=== PATIENT | female | born 1975 | race African-American/Black ===

== ENCOUNTER 2023-11-10 19:31 | Observation (INO) | payer OTHER ==
[2023-11-10 20:13] LABS: Basophils % (A) 0 %; Eosinophils # (A) 0.2 k/uL (0-0.7); Eosinophils % (A) 3 %; HCT 34.6 % (34.0-46.0); HGB 10.8 gm/dL (11.4-16.0); Hypochromasia Moderate; Lymphocytes # (A) 2.8 k/uL (1.0-4.8); Lymphocytes % (A) 44 %; MCH 26.9 pg (25.0-35.0); MCHC 31.2 g/dL (31.0-37.0); Mean Platelet Volume 7.4; Monocytes # (A) 0.2 k/uL (0-1.0); Monocytes % (A) 3 %; Neutrophils # (A) 3.1 k/uL (1.3-7.7); Neutrophils % (A) 49 %; Platelet Count 302 k/uL (150-450); RBC 4.02 m/uL (3.80-5.40); RDW 15.3 % (11.5-15.5); WBC 6.4 k/uL (3.8-10.6)
[2023-11-10 20:18] LABS: Partial Thromboplastin Time 28.6 sec (22.0-30.0); Prothrombin Time 11.2 sec (10.0-12.5)
[2023-11-10 20:21] LABS: ALT 19 U/L (4-34); AST 25 U/L (14-36); African American GFR (CKD) >90 (>60 ml/min/1.73 sqM); Albumin 3.8 g/dL (3.5-5.0); Alkaline Phosphatase 67 U/L (38-126); Anion Gap 8 mmol/L; Blood Urea Nitrogen 15 mg/dL (7-17); Calcium 9.5 mg/dL (8.4-10.2); Carbon Dioxide 23 mmol/L (22-30); Chloride 109 mmol/L (98-107); Glucose 112 mg/dL (74-99); Lipase 147 U/L (23-300); Magnesium 1.7 mg/dL (1.6-2.3); Non-African American GFR(CKD) >90 (>60 ml/min/1.73 sqM); Potassium 3.6 mmol/L (3.5-5.1); Sodium 140 mmol/L (137-145); Total Bilirubin 0.2 mg/dL (0.2-1.3); Total Protein 6.9 g/dL (6.3-8.2)
[2023-11-10 20:29] LABS: NT-Pro-B-Type Natriuretic Pept 306 pg/mL
[2023-11-10] MEDS: NITROGLYCERIN SL TABS 0.4 MG TAB SUBLINGUAL STA (21:28)
--- NOTE | 2023-11-10 21:55 | XR ---
EXAMINATION TYPE: XR chest 2V DATE OF EXAM: 11/10/2023 7:57 PM CLINICAL INDICATION:Female, 48 years old with history of Chest Pain; [facility] COMPARISON: None TECHNIQUE: XR chest 2V. Frontal and lateral views of the chest.. FINDINGS: Lines/Tubes/Devices: EKG leads and other extrinsic structures overlie the chest. No indwelling lines are seen. Heart/mediastinum: Heart appears mildly enlarged. Mediastinum appears normal. Pulmonary vascularity: Pulmonary vascular congestion. Increased interstitial markings can be seen wit h edema or pneumonitis. An element of chronic change is possible. Lungs/Pleura: There is no evidence of pleural effusion, focal consolidation, or pneumothorax. Musculoskeletal: No acute osseous abnormality demonstrated in the limits of the exam. Other findings: None. IMPRESSION: Mild cardiomegaly and mild pulmonary vascular congestion.
[2023-11-10] MEDS ORDERED: NALOXONE 0.4 MG/ML 1 ML VIAL IV PRN (22:11)
--- NOTE | 2023-11-10 22:11 | ED ---
Chest Pain HPI - General Chief Complaint: Chest Pain Stated Complaint: Chest pain Source: patient Mode of arrival: EMS Limitations: no limitations - History of Present Illness Initial Comments: 48-year-old female with past medical history of Behcet's disease, lupus, congestive heart failure who presents emergency department reporting chest pain. She was admitted to [facility] on November 02 for cocaine. Today the patient reported that she started having substernal chest pain with radiation into her left arm and jaw. It started earlier this morning but worsened over the course of the day. She notified staff who gave her 4 chewable aspirin. She presents and continues to have 6 out of 10 chest pain. Denies fevers chills or cough. Reports that she has congestive heart failure due to "the back of her heart not getting blood flow". She denies having any stents. Does have a history of lupus but denies history of pericardial effusion. No other alleviating, precipitating or modifying factors - Related Data Home Medications Medication Instructions Recorded Confirmed Acetaminophen Tab [Tylenol] 650 mg PO Q4H PRN 11/10/23 11/10/23 Amoxicillin 500 mg PO BID 11/10/23 11/10/23 Atorvastatin [Lipitor] 10 mg PO DAILY 11/10/23 11/10/23 Chlorpheniramine Maleate 4 mg PO Q4H PRN 11/10/23 11/10/23 [Chlor-Trimeton] Docusate [Colace] 100 mg PO BID PRN 11/10/23 11/10/23 Hydrocortisone Cream 1 applic TOPICAL BID PRN 11/10/23 11/10/23 [Hydrocortisone 1% Cream] Ibuprofen [Motrin Ib] 200 mg PO Q6H PRN 11/10/23 11/10/23 Melatonin 10 mg PO HS 11/10/23 11/10/23 lisinopriL [Zestril] 10 mg PO DAILY 11/10/23 11/10/23 traZODone HCL [Desyrel] 50 - 150 mg PO HS PRN 11/10/23 11/10/23 Allergies Allergy/AdvReac Type Severity Reaction Status Date / Time Fish Containing Products Allergy Anaphylaxis Verified 11/10/23 19:44 [Fish] lidocaine Allergy Anaphylaxis Verified 11/10/23 19:44 Review of Systems ROS Statement: Those systems with pertinent positive or pertinent negative responses have been documented in the HPI. ROS Other: All systems not noted in ROS Statement are negative. Past Medical History Past Medical History: Chest Pain / Angina, Heart Failure, Rheumatoid Arthritis (RA) Additional Past Medical History / Comment(s): Bechets Diease, Lupus History of Any Multi-Drug Resistant Organisms: None Reported Past Surgical History: Section, Hernia Repair Past Psychological History: No Psychological Hx Reported Smoking Status: Never smoker Past Alcohol Use History: None Reported Past Drug Use History: Cocaine, Marijuana General Exam Limitations: no limitations General appearance: alert, in no apparent distress Head exam: Present: atraumatic, normocephalic, normal inspection Eye exam: Present: normal appearance, PERRL, EOMI. Absent: scleral icterus, conjunctival injection, periorbital swelling ENT exam: Present: normal exam, mucous membranes moist Neck exam: Present: normal inspection. Absent: tenderness, meningismus, lymphadenopathy Respiratory exam: Present: normal lung sounds bilaterally. Absent: respiratory distress, wheezes, rales, rhonchi, stridor Cardiovascular Exam: Present: regular rate, normal rhythm, normal heart sounds. Absent: systolic murmur, diastolic murmur, rubs, gallop, clicks GI/Abdominal exam: Present: soft, normal bowel sounds. Absent: distended, tenderness, guarding, rebound, rigid Extremities exam: Present: normal inspection, full ROM, normal capillary refill. Absent: tenderness, pedal edema, joint swelling, calf tenderness Back exam: Present: normal inspection Neurological exam: Present: alert, oriented X3, CN II-XII intact Psychiatric exam: Present: normal affect, normal mood Skin exam: Present: warm, dry, intact, normal color. Absent: rash Course Vital Signs 11/10/23 11/10/23 11/10/23 19:37 19:41 20:44 Temperature 97.4 F L Pulse Rate 62 77 Pulse Rate [ 65 Complaint Analyst ] Respiratory 18 18 Rate Blood Pressure 134/80 123/73 O2 Sat by Pulse 100 97 Oximetry 11/10/23 11/10/23 21:28 22:00 Temperature Pulse Rate 68 58 L Pulse Rate [ Complaint Analyst ] Respiratory 18 18 Rate Blood Pressure 113/73 121/74 O2 Sat by Pulse 98 100 Oximetry Chest Pain MDM - MDM Was pt. sent in by a medical professional or institution (, PA, LAWN MAINTENANCE WORKER, urgent care, hospital, or longterm...) When possible be specific @ -Patient sent in from [facility] Did you speak to anyone other than the patient for history (EMS, parent, family, police, friend...)? What history was obtained from this source @ -Spoke with EMS for history Did you review nursing and triage notes (agree or disagree)? Why? @ -I reviewed and agree with nursing and triage notes Were old charts reviewed (outside hosp., previous admission, EMS record, old EKG, old radiological studies, urgent care reports/EKG's, longterm records)? Report findings @ -No old charts were reviewed Differential Diagnosis (chest pain, altered mental status, abdominal pain women, abdominal pain men, vaginal bleeding, weakness, fever, dyspnea, syncope, headache, dizziness, GI bleed, back pain, seizure, CVA, palpatations, mental health, musculoskeletal)? @ -Differential Chest Pain: Stable Angina, Unstable Angina, STEMI, NSTEMI Aortic Dissection, Pneumothorax, Musculoskeletal, Esophageal Spasm GERD, Cholecystitis, Pancreatitis, Zoster, this is not meant to be an all-inclusive list. EKG interpreted by me (3pts min.). @ -S and demonstrates sinus rhythm with rate of 60. WI interval 171. QRS 106. QTc of 406. No acute ST segment elevation. Biphasic T wave lead V3 X-rays interpreted by me (1pt min.). @ -Yes and demonstrates no acute process CT interpreted by me (1pt min.). @ -None done U/S interpreted by me (1pt. min.). @ -None done What testing was considered but not performed or refused? (CT, X-rays, U/S, labs)? Why? @ -None What meds were considered but not given or refused? Why? @ -None Did you discuss the management of the patient with other professionals (professionals i.e. , PA, LAWN MAINTENANCE WORKER, lab, RT, psych nurse, child protective services social worker, mobile heavy equipment mechanic, teacher, court security officer, correctional case manager)? Give summary @ -Spoke with Dr. Agustin for admission Was smoking cessation discussed for >3mins.? @ -No Was critical care preformed (if so, how long)? @ -No Were there social determinants of health that impacted care today? How? (Homelessness, low income, unemployed, alcoholism, drug addiction, transportation, low edu. Level, literacy, decrease access to med. care, usp, rehab)? @ -Patient is in rehab Was there de-escalation of care discussed even if they declined (Discuss DNR or withdrawal of care, Hospice)? DNR status @ -No What co-morbidities impacted this encounter? (DM, HTN, Smoking, COPD, CAD, Cancer, CVA, ARF, Chemo, Hep., AIDS, mental health diagnosis, sleep apnea, morbid obesity)? @ -None Was patient admitted / discharged? Hospital course, mention meds given and route, prescriptions, significant lab abnormalities, going to OR and other pertinent info. @ -Upon arrival patient seen and evaluated. Thorough history and physical exam was performed. Twelve-lead EKG is obtained. Laboratory studies are conducted. Patient does have reported cardiac history. She is having active chest pain. I feel the patient would benefit from admission with cardiology consultation. Patient was agreeable to this. She was admitted for in stable condition Undiagnosed new problem with uncertain prognosis? @ -No Drug Therapy requiring intensive monitoring for toxicity (Heparin, Nitro, Ins ulin, Cardizem)? @ -No Were any procedures done? @ -No Diagnosis/symptom? @ -Acute chest pain Acute, or Chronic, or Acute on Chronic? @ -Acute Uncomplicated (without systemic symptoms) or Complicated (systemic symptoms)? @ -Complicated Side effects of treatment? @ -No Exacerbation, Progression, or Severe Exacerbation? @ -No Poses a threat to life or bodily function? How? (Chest pain, [place], [place], pneumonia, PE, COPD, DKA, ARF, appy, cholecystitis, CVA, Diverticulitis, Homicidal, Suicidal, threat to staff... and all critical care pts) @ -No Disposition Clinical Impression: Chest pain Disposition: ADMITTED IP TO THIS HOSP Condition: Stable Is patient prescribed a controlled substance at d/c from ED?: No Time of Disposition: 22:11 Decision to Admit Reason: Admit from EC Decision Date: 11/10/23 Decision Time: 22:11
[2023-11-10] MEDS: KETOROLAC 15 MG/ML 1 ML VIAL IVP STA (23:03)
[2023-11-11] MEDS ORDERED: DOCUSATE 100 MG CAP PO PRN
[2023-11-11] MEDS ORDERED: NITROGLYCERIN SL TABS 0.4 MG TAB SUBLINGUAL PRN (00:02)
--- NOTE | 2023-11-11 00:18 | P.HPIM ---
History of Present Illness H&P Date: 11/10/23 Chief Complaint: chest pain 48-year-old female with arthritis and lupus Patient was at [facility] for the past 1 week due to polysubstance abuse today she was having episodes of almost blacking out she was standing in line waiting for food when suddenly she felt sudden onset chest pressure 10 out of 10 in severity retrosternal associated with dizziness profuse sweating shortness of breath palpitations and lightheadedness she feels like almost blacking out but she did not staff helped her out gave her 4 tablets of baby aspirin and nitroglycerin sublingual without improvement in chest pain they then called 911 and transferred her to our facility for evaluation at time of my evaluation right now she still complaining of retrosternal chest pain requesting some pain medications claiming that nitro sublingual is not working. At this time denies any shortness of breath nausea vomiting dizziness or lightheadedness She denies any cardiac history she does report some vague congestive heart failure but denies any coronary artery disease or stenting in the past she claims that she had remote cardiac workup in the past nothing recent She admits to tobacco smoking and illicit drugs occasional marijuana and cocaine last use was about a week ago for cocaine denies any heavy alcohol she denies any fever, chills, cough, sore throat, abd pain , changes in urinary or bowel habits. review of systems Pertinent positives as noted in HPI. All other systems were reviewed and are negative on exam Constitutional: No acute distress, conversant, pleasant Eyes: Anicteric sclerae, moist conjunctiva, Pupils equal round reactive to light Lungs: Clear to auscultation Clear to percussion Normal respiratory effort, no accessory muscle use Cardiovascular: Heart regular in rate and rhythm, No murmurs, gallops, or rubs +1 bilateral peripheral leg edema Abdominal: Soft Nontender, no guarding, rebound or rigidity Abdomen moving with respiration Normoactive bowel sounds Extremities: Deformity of bilateral hands due to arthritis Pedal pulses intact and symmetrical Radial pulses intact and symmetrical No calf tenderness Psychiatric: Alert and oriented to person, place and time Neuro Muscles Strength 5/5 in all 4 extremities Sensation to light touch grossly present throughout Cranial nerves II-XII grossly intact Past Medical History Past Medical History: Chest Pain / Angina, Heart Failure, Rheumatoid Arthritis (RA) Additional Past Medical History / Comment(s): Bechets Disease, Lupus History of Any Multi-Drug Resistant Organisms: None Reported Past Surgical History: Section, Hernia Repair Past Anesthesia/Blood Transfusion Reactions: No Reported Reaction Past Psychological History: No Psychological Hx Reported Smoking Status: Current every day smoker Past Alcohol Use History: None Reported Past Drug Use History: Cocaine, Marijuana Medications and Allergies Home Medications Medication Instructions Recorded Confirmed Type Acetaminophen Tab [Tylenol] 650 mg PO Q4H PRN 11/10/23 11/10/23 History Amoxicillin 500 mg PO BID 11/10/23 11/10/23 History Atorvastatin [Lipitor] 10 mg PO DAILY 11/10/23 11/10/23 History Chlorpheniramine Maleate 4 mg PO Q4H PRN 11/10/23 11/10/23 History [Chlor-Trimeton] Docusate [Colace] 100 mg PO BID PRN 11/10/23 11/10/23 History Hydrocortisone Cream 1 applic TOPICAL BID PRN 11/10/23 11/10/23 History [Hydrocortisone 1% Cream] Ibuprofen [Motrin Ib] 200 mg PO Q6H PRN 11/10/23 11/10/23 History Melatonin 10 mg PO HS 11/10/23 11/10/23 History lisinopriL [Zestril] 10 mg PO DAILY 11/10/23 11/10/23 History traZODone HCL [Desyrel] 50 - 150 mg PO HS PRN 11/10/23 11/10/23 History Allergies Allergy/AdvReac Type Severity Reaction Status Date / Time Fish Containing Products Allergy Anaphylaxis Verified 11/10/23 19:44 [Fish] lidocaine Allergy Anaphylaxis Verified 11/10/23 19:44 Physical Exam Vitals: Vital Signs Temp Pulse Pulse Resp BP Pulse Ox 11/10/23 22:00 58 L 18 121/74 100 11/10/23 21:28 68 18 113/73 98 11/10/23 20:44 77 18 123/73 97 11/10/23 19:41 65 11/10/23 19:37 97.4 F L 62 18 134/80 100 Intake and Output 11/10/23 11/10/23 11/11/23 14:59 22:59 06:59 Other: Weight 70.76 kg Results CBC & Chem 7: 11/10/23 19:45 11/10/23 19:45 Labs: Abnormal Lab Results - Last 24 Hours (Table) 11/10/23 11/10/23 Range/Units 19:45 19:45 Hgb 10.8 L (11.4-16.0) gm/dL Chloride 109 H (98-107) mmol/L Glucose 112 H (74-99) mg/dL Thrombosis Risk Factor Assmnt - Choose All That Apply Each Factor Represents 1 point: Age 41-60 years Thrombosis Risk Factor Assessment Total Risk Factor Score: 1 Thrombosis Risk Factor Assessment Level: Low Risk Assessment and Plan Assessment: 48-year-old female with lupus, arthritis coming in for sudden onset chest pain while she was at [facility] for the past week for polysubstance abuse last use of cocaine was about a week ago I discussed case with ED doctor and accepted the admission for atypical chest pain rule out acute coronary syndrome with a nticipated length of stay less than 2 midnights Atypical chest pain rule out ACS Chest x-ray showing mild pulmonary vascular congestion EKG reported to me to be unremarkable for any acute ST changes I was unable to locate that EKG for review Troponin negative continue to trend Continue with aspirin and Lipitor Cardiology consult Cardiac monitoring Continue to monitor vital signs Morphine IV push 2 mg as needed every 4 hours for pain Check lipid panel in the morning Continue with nitroglycerin sublingual as needed Anemia Hemoglobin 10.8 unknown baseline MCV 86 unremarkable Patient denies any heavy bleeding Continue to monitor hemoglobin Renal function unremarkable sodium 140 potassium 3.6 BUN 15 creatinine 0.59 Hypertension Controlled Continue lisinopril 10 mg p.o. daily Full code DVT prophylaxis Lovenox 40 mg subcu daily
[2023-11-11] MEDS: MELATONIN 5 MG TABLET PO SCH (02:00)
[2023-11-11] MEDS: ACETAMINOPHEN TAB 325 MG TAB PO PRN (03:40)
[2023-11-11 04:41] LABS: Basophils % (A) 0 %; Eosinophils # (A) 0.1 k/uL (0-0.7); Eosinophils % (A) 3 %; HCT 34.5 % (34.0-46.0); HGB 10.8 gm/dL (11.4-16.0); Hypochromasia Moderate; Lymphocytes # (A) 2.2 k/uL (1.0-4.8); Lymphocytes % (A) 51 %; MCH 26.8 pg (25.0-35.0); MCHC 31.3 g/dL (31.0-37.0); MCV 85.7 fL (80.0-100.0); Mean Platelet Volume 7.5; Monocytes # (A) 0.1 k/uL (0-1.0); Monocytes % (A) 3 %; Neutrophils # (A) 1.7 k/uL (1.3-7.7); Neutrophils % (A) 40 %; Platelet Count 267 k/uL (150-450); RBC 4.02 m/uL (3.80-5.40); RDW 15.4 % (11.5-15.5); WBC 4.3 k/uL (3.8-10.6)
[2023-11-11] MEDS: PANTOPRAZOLE 40 MG TABLET PO SCH (06:46)
[2023-11-11] MEDS: ENOXAPARIN 40 MG/0.4 ML SYRINGE SQ SCH (08:56)
[2023-11-11] MEDS: MAGNESIUM OXIDE 400 MG TAB PO STA (08:56)
[2023-11-11] MEDS: ATORVASTATIN 10 MG TAB PO SCH (08:56)
[2023-11-11] MEDS: ASPIRIN 81 MG PO SCH (08:56)
[2023-11-11] MEDS: lisinopriL 10 MG TAB PO SCH (08:56)
--- NOTE | 2023-11-11 09:52 | P.CRDCN ---
History of Present Illness Consult date: 11/11/23 History of present illness: HISTORY OF PRESENTING ILLNESS 48-year-old female with arthritis and lupus was being placed in [facility] facility for polysubstance abuse. She presented to the hospital because of concerns of blacking out while standing and waiting in line for food. Patient has been also complaining 10/10 left-sided chest pain under her breast which is somewhat reproducible on palpation. She denies any relief of her chest pain with sublingual nitroglycerin and Toradol. Her ECG shows sinus bradycardia Her telemetry shows sinus bradycardia with heart rate in 40s while she is resting. Troponins are negative, NT proBNP is normal, hemoglobin is 10.8 REVIEW OF SYSTEMS 14 point review of system is negative except what is mentioned above in HPI. PHYSICAL EXAMINATION Vital signs reviewed. Head: Normocephalic. Eyes: Sclerae nonicteric. Neck: Brisk carotid upstroke, no jugular venous distention. Lungs: Clear to auscultation. Heart: Regular rate and rhythm, S1-S2, no S3, no murmur or rub. Mild tenderness under left breast Abdomen: Soft nontender, positive bowel sounds. Extremities: No edema, intact distal pulses. Neuro: Alert, oritented, no focal deficits. Detailed neuro exam was not performed. ASSESSMENT Sinus bradycardia, physiological Essential hypertension, controlled Polysubstance abuse Mild dehydration Anemia Arthritis lupus PLAN Ambulate patient to see what is her heart rate trends like. If patient's heart rate goes up with ambulation, no further cardiac intervention needed for sinus bradycardia which is most likely physiological. Encourage p.o. intake She is on aspirin, atorvastatin 10, lisinopril 10 mg at home. Will discontinue lisinopril because of her low resting blood pressure Consider lidocaine patch for chest pain and see if it makes any difference Consider obtaining an echocardiogram to make sure there is no cardiogenic etiology of her symptoms. If echocardiogram is normal, patient is cleared from cardiovascular standpoint. Beka Causey MD, FACC, RPVI Thank you for allowing [facility] to participate in this patient's care. Feel free to reach out in case of any followup questions. Past Medical History Past Medical History: Chest Pain / Angina, Heart Failure, Rheumatoid Arthritis (RA) Additional Past Medical History / Comment(s): Bechets Disease, Lupus History of Any Multi-Drug Resistant Organisms: None Reported Past Surgical History: Section, Hernia Repair Past Anesthesia/Blood Transfusion Reactions: No Reported Reaction Past Psychological History: No Psychological Hx Reported Smoking Status: Current every day smoker Past Alcohol Use History: None Reported Past Drug Use History: Cocaine, Marijuana Medications and Allergies Home Medications Medication Instructions Recorded Confirmed Type Acetaminophen Tab [Tylenol] 650 mg PO Q4H PRN 11/10/23 11/10/23 History Amoxicillin 500 mg PO BID 11/10/23 11/10/23 History Atorvastatin [Lipitor] 10 mg PO DAILY 11/10/23 11/10/23 History Chlorpheniramine Maleate 4 mg PO Q4H PRN 11/10/23 11/10/23 History [Chlor-Trimeton] Docusate [Colace] 100 mg PO BID PRN 11/10/23 11/10/23 History Hydrocortisone Cream 1 applic TOPICAL BID PRN 11/10/23 11/10/23 History [Hydrocortisone 1% Cream] Ibuprofen [Motrin Ib] 200 mg PO Q6H PRN 11/10/23 11/10/23 History Melatonin 10 mg PO HS 11/10/23 11/10/23 History lisinopriL [Zestril] 10 mg PO DAILY 11/10/23 11/10/23 History traZODone HCL [Desyrel] 50 - 150 mg PO HS PRN 11/10/23 11/10/23 History Allergies Allergy/AdvReac Type Severity Reaction Status Date / Time Fish Containing Products Allergy Anaphylaxis Verified 11/10/23 19:44 [Fish] lidocaine Allergy Anaphylaxis Verified 11/10/23 19:44 Physical Exam Vitals: Vital Signs Temp Pulse Pulse Resp BP BP Pulse Ox 11/11/23 00:44 98.3 F 67 16 100/57 98 11/10/23 23:48 98.7 F 59 L 16 115/74 99 11/10/23 22:00 58 L 18 121/74 100 11/10/23 21:28 68 18 113/73 98 11/10/23 20:44 77 18 123/73 97 11/10/23 19:41 65 11/10/23 19:37 97.4 F L 62 18 134/80 100 Intake and Output 11/10/23 11/11/23 11/11/23 22:59 06:59 14:59 Intake Total 120 Balance 120 Intake: Oral 120 Other: Voiding Method Toilet # Voids 1 Weight 70.76 kg Results 11/11/23 03:22 11/10/23 19:45 Cardiac Enzymes 11/10/23 11/10/23 11/11/23 Range/Units 19:45 19:45 00:17 AST 25 (14-36) U/L Troponin I <0.012 <0.012 (0.000-0.034) ng/mL 11/11/23 Range/Units 03:22 AST (14-36) U/L Troponin I <0.012 (0.000-0.034) ng/mL Coagulation 11/10/23 Range/Units 19:45 PT 11.2 (10.0-12.5) sec APTT 28.6 (22.0-30.0) sec CBC 11/10/23 11/11/23 Range/Units 19:45 03:22 WBC 6.4 4.3 (3.8-10.6) k/uL RBC 4.02 4.02 (3.80-5.40) m/uL Hgb 10.8 L 10.8 L (11.4-16.0) gm/dL Hct 34.6 34.5 (34.0-46.0) % Plt Count 302 267 (150-450) k/uL Comprehensive Metabolic Panel 11/10/23 Range/Units 19:45 Sodium 140 (137-145) mmol/L Potassium 3.6 (3.5-5.1) mmol/L Chloride 109 H (98-107) mmol/L Carbon Dioxide 23 (22-30) mmol/L BUN 15 (7-17) mg/dL Creatinine 0.59 (0.52-1.04) mg/dL Glucose 112 H (74-99) mg/dL Calcium 9.5 (8.4-10.2) mg/dL AST 25 (14-36) U/L ALT 19 (4-34) U/L Alkaline Phosphatase 67 (38-126) U/L Total Protein 6.9 (6.3-8.2) g/dL Albumin 3.8 (3.5-5.0) g/dL Current Medications Generic Name Dose Route Start Last Admin Trade Name Freq PRN Reason Stop Dose Admin Acetaminophen 650 mg 11/11/23 00:00 11/11/23 03:40 Acetaminophen Tab 325 Mg Tab PO 650 mg Q4H PRN Administration Fever and/ or Pain Aspirin 81 mg 11/11/23 09:00 11/11/23 08:56 Aspirin 81 Mg PO 81 mg DAILY BERTRAM Administration Atorvastatin Calcium 10 mg 11/11/23 09:00 11/11/23 08:56 Atorvastatin 10 Mg Tab PO 10 mg DAILY BERTRAM Administration Docusate Sodium 100 mg 11/11/23 00:00 Docusate 100 Mg Cap PO BID PRN Constipation Enoxaparin Sodium 40 mg 11/11/23 09:00 11/11/23 08:56 Enoxaparin 40 Mg/0.4 Ml Syringe SQ 40 mg DAILY BERTRAM Administration Melatonin 10 mg 11/11/23 00:15 11/11/23 02:00 Melatonin 5 Mg Tablet PO Not Given HS BERTRAM Morphine Sulfate 2 mg 11/11/23 00:01 Morphine Sulfate 2 Mg/Ml Syringe IVP Q4HR PRN Pain/Discomfort Naloxone HCl 0.2 mg 11/10/23 22:11 Naloxone 0.4 Mg/Ml 1 Ml Vial IV Q2M PRN Opioid Reversal Nitroglycerin 0.4 mg 11/11/23 00:02 Nitroglycerin Sl Tabs 0.4 Mg Tab SUBLINGUAL Q5M PRN Chest Pain Pantoprazole Sodium 40 mg 11/11/23 07:30 11/11/23 06:46 Pantoprazole 40 Mg Tablet PO 40 mg [id number] BERTRAM Administration Intake and Output 11/10/23 11/11/23 11/11/23 22:59 06:59 14:59 Intake Total 120 Balance 120 Intake: Oral 120 Other: Voiding Method Toilet # Voids 1 Weight 70.76 kg 11/11/23 03:22 11/10/23 19:45
[2023-11-11 10:09] LABS: Chol/HDL Ratio 2.86 Ratio; LDL Cholesterol,Calculated 70.7 mg/dL (0.0-131.0)
[2023-11-11 10:10] LABS: Blood Urea Nitrogen 14.3 mg/dL (9.0-27.0); Calcium 8.8 mg/dL (8.7-10.3); Carbon Dioxide 22.5 mmol/L (21.6-31.8); Chloride 110 mmol/L (96-109); Glucose 89 mg/dL (70-110); Potassium 3.7 mmol/L (3.5-5.5); Sodium 142 mmol/L (135-145)
--- NOTE | 2023-11-11 12:58 | P.PN ---
Subjective Progress Note Date: 11/11/23 Hospital course: Patient is a 48-year-old female with a past medical history of rheumatoid arthritis, Behcet's disease, lupus, nicotine dependence, and polysubstance abuse with cocaine and marijuana. She presented to the hospital on 11/10/2023 from [place] where she was undergoing treatment for her polysubstance abuse. Patient reported she had been at [facility] for 1 week and has been experiencing episodes of blacking out while standing in line and began to experience sudden 10 out of 10 chest pain accompanied by significant diaphoresis, dizziness, lightheadedness, and shortness of breath. Upon arrival to our facility, patient underwent evaluation in the emergency department. Vital signs upon arrival show blood pressure 134/80, heart rate 62, respiratory rate 18, temp 97.4 F, and SpO2 of 100% on room air. EKG was completed and reviewed showing normal sinus rhythm at 60 bpm with no significant T wave or ST abnormality showing no signs of acute ischemia upon personal review and interpretation. Chest x-ray completed showing mild cardiomegaly and pulmonary vascular congestion. Labs were completed and reviewed. CBC showing normocytic anemia with hemoglobin of 10.8. Coagulation profile normal findings. BMP showing mild hyperchloremia with chloride of 109 otherwise normal findings. Blood glucose was 112. Magnesium slightly low at 1.7 otherwise normal findings. Troponin was negative at less than 0.012 and proBNP was 306. Patient was admitted under our services with consultation to cardiology. Troponins trended overnight all negative at less than 0.012 x 3 draws. Physical exam: Patient seen and fully evaluated at bedside. She continues to report pain to midsternal chest radiating into left anterior chest beneath left breast. She denied worsening pain with palpation and denies increased pain with movement. Patient reports pain is constant and accompanied by mild shortness of breath. Vital signs reviewed and stable. General: Nontoxic, no distress and appears stated age. Derm: Skin warm and dry, normal coloration for ethnicity. Head: Atraumatic, normocephalic and symmetric. Eyes: EOM's intact, no lid lag, and anicteric sclera Mouth: no lip lesions, mucus membranes moist Cardiovascular: regular rate and rhythm with normal S1S2, no murmur, positive posterior tibial pulses bilaterally, and cap refill < 2 seconds. Lungs: Respirations even, regular, and unlabored on room air. Lungs CTA bilaterally, no rhonchi, no rales, no wheezing, and no accessory muscle usage. Abdominal: soft, nontender to palpation, no guarding, no appreciable organomegaly Ext: ROM intact. No gross muscle atrophy, no edema, no contractures Neuro: Speech clear, face symmetrical and CN II-XII grossly intact with no noted focal neuro deficits Psych: Alert and oriented to person, place, time, and situation. Appropriate and pleasant affect. Assessment and Plan of Care: Chest pain, acute coronary event ruled out Near syncope. Bradycardia Cardiomegaly and pulmonary vascular congestion, mild Polysubstance abuse Hypertension Normocytic anemia -Cardiology consulted, appreciate recommendations -Telemetry monitoring -Troponins negative less than 0.012 x 3 draws. -Continue aspirin 81 mg daily, atorvastatin 10 mg daily, and lisinopril 10 mg daily. As needed nitro tablets sublingual 0.4 mg every 5 minutes as needed for chest pain. -Lipid profile unremarkable. -Order placed for D-dimer, plan to follow-up D-dimer elevated at 1.84. Order placed for stat CTA chest to rule out PE. -Echocardiogram -Order placed for orthostatic vitals and RN communication placed to ambulate patient to assess for chronotropic competency. -Recommend returning to [facility] for completion of rehab for polysubstance abuse. Encourage patient to continue cessation of drug use. Data and imaging reviewed: Labs reviewed. Troponins trended overnight all negative at less than 0.012 x 3 draws. Repeat morning labs reviewed. CBC showing stable normocytic anemia with hemoglobin of 10.8. BMP showing hyperchloremia with chloride of 110. Blood glucose 89. Lipid profile unremarkable. Order was placed for D-dimer which resulted elevated at 1.84. Orders placed for stat CTA chest to rule out PE. Vital signs reviewed. Blood pressure 139/87, heart rate 52, respiratory rate 17, temp 97.8 F, and SpO2 100% on room air. CODE STATUS: Full code DVT prophylaxis: Lovenox Anticipated discharge date: Pending clinical course Anticipated discharge place: Return to [facility] Patient was seen independently by Nurse Pracitioner. This document was prepared using [employer] dictation software. Please allow for errors in employment specialist/program manager, while rare they do occur. I reviewed the documentation as provided by the ROSALIO above, who is the original author of this note. I agree with the documented assessment and plan, with the following changes: none Objective - Vital Signs Vital signs: Vital Signs Temp 98.3 F 11/11/23 00:44 Pulse 67 11/11/23 00:44 Resp 16 11/11/23 00:44 BP 100/57 11/11/23 00:44 Pulse Ox 98 11/11/23 00:44 FiO2 Intake & Output 11/10/23 11/11/23 11/11/23 18:59 06:59 18:59 Intake Total 120 Balance 120 Weight 70.76 kg Intake: Oral 120 Other: Voiding Method Toilet # Voids 1 - Labs CBC & Chem 7: 11/12/23 03:08 11/12/23 03:08 Labs: Abnormal Lab Results - Last 24 Hours (Table) 11/10/23 11/10/23 11/11/23 Range/Units 19:45 19:45 03:22 Hgb 10.8 L 10.8 L (11.4-16.0) gm/dL Chloride 109 H (98-107) mmol/L Glucose 112 H (74-99) mg/dL
--- NOTE | 2023-11-11 13:01 | CT ---
EXAMINATION TYPE: CT chest angio for PE DATE OF EXAM: 11/11/2023 COMPARISON: None HISTORY: Lung ca, staging, CT DLP: 279.90 mGycm Automated exposure control for dose reduction was used. CONTRAST: CT Chest for pulmonary embolism performed with with IV Contrast, patient injected with 80 mL of Isovu e 370. FINDINGS: LUNGS: There is no suspicious lung mass or nodule. There is mild interstitial opacity in the lingula. There is no airspace consolidation. There is no pleural effusion or pneumothorax. Great vessels of the chest are normal and there are no filling defects within the pulmonary arterial circulation to suggest pulmonary embolus. No mediastinal, hilar or axillary adenopathy. No focal osseous lesions are seen. Limited scanning through the abdomen reveals no gross abnormality. IMPRESSION: 1. No evidence of pulmonary embolus. 2. No acute cardiopulmonary disease.
--- NOTE | 2023-11-11 15:32 | CA ---
Transthoracic Echo Report Name: Perla Crane Age: 48 Gender: F : 1975 Exam Date: 11/11/2023 07:33 Exam Location: [facility] Ht (in): 69 Wt (lb): 156 Ordering Physician: Heidy Dave MD Attending/Referring Phys: [id number], [employer] Manager Cherri Sood RDCS Procedure CPT: Indications: near syncope Cardiac Hx: Technical Quality: Good Contrast 1: Total Dose (mL): Contrast 2: Total Dose (mL): MEASUREMENTS (Male / Female) Normal Values 2D ECHO LV Diastolic Diameter PLAX 5.3 cm 4.2 - 5.9 / 3.9 - 5.3 cm LV Systolic Diameter PLAX 3.7 cm IVS Diastolic Thickness 0.7 cm 0.6 - 1.0 / 0.6 - 0.9 cm LVPW Diastolic Thickness 1.1 cm 0.6 - 1.0 / 0.6 - 0.9 cm LV Relative Wall Thickness 0.4 LVOT Diameter 2.1 cm LV Diastolic Volume MOD BP 170.8 cm??? 67 - 155 / 56 - 104 cm??? LV Systolic Volume MOD BP 63.2 cm??? 22 - 58 / 19 - 49 cm??? LV Ejection Fraction MOD BP 63.0 % >= 55 % LV Cardiac Index MOD BP 3472.3 cm???/min???m??? LV Diastolic Volume MOD 4C 167.6 cm??? LV Systolic Volume MOD 4C 60.3 cm??? LV Ejection Fraction MOD 4C 64.0 % LV Cardiac Index MOD 4C 3465.0 cm???/min???m??? LV Diastolic Length 4C 9.8 cm LV Systolic Length 4C 8.3 cm LV Diastolic Volume MOD 2C 167.1 cm??? LV Systolic Volume MOD 2C 59.8 cm??? LV Ejection Fraction MOD 2C 64.2 % LV Cardiac Index MOD 2C 3462.1 cm???/min???m??? LV Diastolic Length 2C 9.4 cm LV Systolic Length 2C 7.5 cm LA Volume 94.9 cm??? 18 - 58 / 22 - 52 cm??? LA Volume Index 51.1 cm???/m??? 16 - 28 cm???/m??? DOPPLER AV Peak Velocity 131.0 cm/s AV Peak Gradient 6.9 mmHg AV Mean Velocity 87.2 cm/s AV Mean Gradient 3.5 mmHg AV Velocity Time Integral 27.7 cm LVOT Peak Velocity 112.8 cm/s LVOT Peak Gradient 5.1 mmHg LVOT Velocity Time Integral 24.5 cm LVOT Stroke Volume 85.9 cm??? LVOT Stroke Volume Index 46.2 ml/m??? LVOT Cardiac Index 2774.6 cm???/min???m??? AV Area Cont Eq vti 3.1 cm??? AV Area Cont Eq pk 3.0 cm??? MV Area PHT 3.6 cm??? Mitral E Point Velocity 87.0 cm/s Mitral A Point Velocity 49.6 cm/s Mitral E to A Ratio 1.8 MV Deceleration Time 211.9 ms TR Peak Velocity 247.4 cm/s TR Peak Gradient 24.5 mmHg Right Atrial Pressure 20.0 mmHg Pulmonary Artery Systolic Pressu 44.5 mmHg Right Ventricular Systolic Press 44.5 mmHg PV Peak Velocity 70.3 cm/s PV Peak Gradient 2.0 mmHg FINDINGS Left Ventricle Left ventricular ejection fraction is estimated at 60 %. Mildly increased posterior wall thickness. Midly increased LV diastolic diameter. Moderately increased left ventricular systolic volume. No obvious regional wall motion abnormalities. Right Ventricle Right ventricle not well visualized. Mild pulmonary hypertension. Right Atrium Mild right atrial dilatation. Left Atrium Mild LA dilatation Mitral Valve Structurally normal mitral valve. No evidence for mitral valve prolapse. No mitral stenosis. Mild mitral regurgitation. Aortic Valve Trileaflet aortic valve. No aortic valve stenosis or regurgitation. Tricuspid Valve Structurally normal tricuspid valve. No tricuspid stenosis. Mild tricuspid regurgitation. Pulmonic Valve Structurally normal pulmonic valve. No pulmonic stenosis. Trace pulmonic regurgitation. Pericardium No pericardial effusion. Aorta Mildly dilated aortic annulus. CONCLUSIONS Left ventricular ejection fraction is estimated at 60 %. Mildly increased LV cavity size Mild biatrial dilatation Mild MR Mild Pulmo HTn with RVSP at 44 mmHg No pericardial effusion Previewed by: Dr Beka Causey (Electronically Signed) Final Date: 11 November 2023 15:31
[2023-11-11] MEDS: MORPHINE SULFATE 2 MG/ML SYRINGE IVP PRN (15:37)
[2023-11-11 20:30] VITALS: RESP 16
[2023-11-12 08:18] VITALS: BP 149/81; PULSE 52; TEMP 98.6
[2023-11-12 09:37] LABS: HCT 33.3 % (37.2-46.3); HGB 10.5 g/dL (12.0-15.0); MCH 26.6 pg (27.0-32.0); MCHC 31.5 g/dL (32.0-37.0); MCV 84.3 FL (80.0-97.0); Mean Platelet Volume 10.3 FL (9.5-12.2); NRBC Per 100 WBC 0 X 10*3/uL (0.00-0.01); Platelet Count 293 X 10*3/uL (140-440); RBC 3.95 X 10*6/uL (4.10-5.20); RDW 15.6 % (11.5-14.5); WBC 4.87 X 10*3/uL (4.50-10.00)
[2023-11-12 09:58] LABS: ALT 22 U/L (8-44); AST 18 U/L (13-35); Albumin 3.6 g/dL (3.8-4.9); Albumin/Globulin Ratio 1.38 Ratio (1.60-3.17); Alkaline Phosphatase 52 U/L (41-126); Blood Urea Nitrogen 11.8 mg/dL (9.0-27.0); Calcium 8.8 mg/dL (8.7-10.3); Carbon Dioxide 22.5 mmol/L (21.6-31.8); Chloride 108 mmol/L (96-109); Globulin 2.6 g/dL (1.6-3.3); Glucose 100 mg/dL (70-110); Magnesium 1.7 mg/dL (1.5-2.4); Potassium 4.1 mmol/L (3.5-5.5); Sodium 139 mmol/L (135-145); Total Bilirubin <0.2 mg/dL (0.3-1.2); Total Protein 6.2 g/dL (6.2-8.2)
--- NOTE | 2023-11-12 14:02 | P.DS ---
Providers Date of admission: 11/10/23 22:11 Expected date of discharge: 11/12/23 Attending physician: Heidy Dave MD Consults: 11/10/23 22:11 Consult Physician Urgent Consulting Provider: [facility] Consult Reason/Comments: acute chest pain, possible acs, hx chf Do you want consulting provider notified?: Yes Primary care physician: Stated None Hospital Course: Discharge Diagnosis: Chest pain, acute coronary event ruled out Near syncope Bradycardia, patient evaluated by medical esthetician stating physiological sinus bradycardia. Patient positive chronotropic competency. Raw Scales Operator stated no further workup indicated at this time. Cardiomegaly and pulmonary vascular congestion, mild Polysubstance abuse Hypertension Normocytic anemia Hospital course: Patient is a 48-year-old female with a past medical history of rheumatoid arthritis, Behcet's disease, lupus, nicotine dependence, and polysubstance abuse with cocaine and marijuana. She presented to the hospital on 11/10/2023 from [place] where she was undergoing treatment for her polysubstance abuse. Patient reported she had been at [facility] for 1 week and has been experiencing episodes of blacking out while standing in line and began to experience sudden 10 out of 10 chest pain accompanied by significant diaphoresis, dizziness, lightheadedness, and shortness of breath. Upon arrival to our facility, patient underwent evaluation in the emergency department. Vital signs upon arrival show blood pressure 134/80, heart rate 62, respiratory rate 18, temp 97.4 F, and SpO2 of 100% on room air. EKG was completed and reviewed showing normal sinus rhythm at 60 bpm with no significant T wave or ST abnormality showing no signs of acute ischemia upon personal review and interpretation. Chest x-ray completed showing mild cardiomegaly and pulmonary vascular congestion. Labs were completed and reviewed. CBC showing normocytic anemia with hemoglobin of 10.8. Coagulation profile normal findings. BMP showing mild hyperchloremia with chloride of 109 otherwise normal findings. Blood glucose was 112. Magnesium slightly low at 1.7 otherwise normal findings. Troponin was negative at less than 0.012 and proBNP was 306. Patient was admitted under our services with consultation to cardiology. Troponins trended overnight all negative at less than 0.012 x 3 draws. Order placed for D-dimer which was elevated at 1.84. CTA chest was completed negative for PE or acute cardiopulmonary process. Echocardiogram was completed showing preserved EF of 60% with mild pulmonary hypertension, mild biatrial dilation and mild mitral regurgitation. Cardiology clearing patient from their perspective for discharge. Patient strongly encouraged to avoid polysubstance use especially with cocaine. She is medically stable for discharge and cleared to return to drug and alcohol rehabilitation facility at [place]. Physical exam: Vital signs reviewed and stable. General: Nontoxic, no distress and appears stated age. Derm: Skin warm and dry, normal coloration for ethnicity. Head: Atraumatic, normocephalic and symmetric. Eyes: EOM's intact, no lid lag, and anicteric sclera Mouth: no lip lesions, mucus membranes moist Cardiovascular: regular rate and rhythm with normal S1S2, no murmur, positive posterior tibial pulses bilaterally, and cap refill < 2 seconds. Lungs: Respirations even, regular, and unlabored on room air. Lungs CTA bilaterally, no rhonchi, no rales, no wheezing, and no accessory muscle usage. Abdominal: soft, nontender to palpation, no guarding, no appreciable organomegaly Ext: ROM intact. No gross muscle atrophy, no edema, no contractures Neuro: Speech clear, face symmetrical and CN II-XII grossly intact with no noted focal neuro deficits Psych: Alert and oriented to person, place, time, and situation. Appropriate and pleasant affect. A total of 33 minutes of time were spent preparing this complex discharge summary. Pt was discharged on 11/12/2023 at 9:11 AM. Patient was seen independently by Nurse Practitioner. This document was prepared using [employer] dictation software. Please allow for errors in risk and insurance consultant while rare they do occur. I reviewed the documentation as provided by the ROSALIO above, who is the original author of this note. I agree with the documented assessment and plan, with the following changes: none Patient Condition at Discharge: Stable Plan - Discharge Summary New Discharge Prescriptions: Continue Atorvastatin [Lipitor] 10 mg PO DAILY Acetaminophen Tab [Tylenol] 650 mg PO Q4H PRN PRN Reason: Fever And/ Or Pain traZODone HCL [Desyrel] 50 - 150 mg PO HS PRN PRN Reason: Insomnia Melatonin 10 mg PO HS Docusate [Colace] 100 mg PO BID PRN PRN Reason: Constipation Amoxicillin 500 mg PO BID lisinopriL [Zestril] 10 mg PO DAILY Ibuprofen [Motrin Ib] 200 mg PO Q6H PRN PRN Reason: Pain Hydrocortisone Cream [Hydrocortisone 1% Cream] 1 applic TOPICAL BID PRN PRN Reason: Skin Irritation Chlorpheniramine Maleate [Chlor-Trimeton] 4 mg PO Q4H PRN PRN Reason: Allergy Symptoms Discharge Medication List Acetaminophen Tab [Tylenol] 650 mg PO Q4H PRN 11/10/23 [History] Amoxicillin 500 mg PO BID 11/10/23 [History] Atorvastatin [Lipitor] 10 mg PO DAILY 11/10/23 [History] Chlorpheniramine Maleate [Chlor-Trimeton] 4 mg PO Q4H PRN 11/10/23 [History] Docusate [Colace] 100 mg PO BID PRN 11/10/23 [History] Hydrocortisone Cream [Hydrocortisone 1% Cream] 1 applic TOPICAL BID PRN 11/10/23 [History] Ibuprofen [Motrin Ib] 200 mg PO Q6H PRN 11/10/23 [History] Melatonin 10 mg PO HS 11/10/23 [History] lisinopriL [Zestril] 10 mg PO DAILY 11/10/23 [History] traZODone HCL [Desyrel] 50 - 150 mg PO HS PRN 11/10/23 [History] Follow up Appointment(s)/Referral(s): Beka Causey MD [Medical Doctor] - 1 Week Iván Kuhn MD [REFERRING] - 1 Week Patient Instructions/Handouts: Chest Pain (DC), Medical Clearance for Substance Abuse Treatment (DC) Activity/Diet/Wound Care/Special Instructions: Activity: As tolerated. Take breaks as needed. Diet: Heart healthy and carb consistent diet. Avoid salts, or foods with hidden salts such as canned or boxed foods and frozen dinners. Extra salt makes your heart work harder and traps the fluid in your body for longer. Special Instructions: Take all of your medications as directed and remember to keep all of your doctor's appointments and follow-up as needed. Thank you for allowing us to participate in your care, it was truly a pleasure having you for our patient!!! Discharge Disposition: HOME SELF-CARE
== END 2023-11-12 10:00 | disposition home or self-care (01) ==
LOC: EC 19:31 → 6NMEDSUR 22:11
PROVIDERS: ADMIT Internal Medicine; ATTEND Internal Medicine
DX: R07.89 Other chest pain (principal); E86.0 Dehydration; I42.0 Dilated cardiomyopathy; I11.0 Hypertensive heart disease with heart failure; I50.9 Heart failure, unspecified; I27.20 Pulmonary hypertension, unspecified; I34.0 Nonrheumatic mitral (valve) insufficiency; M19.042 Primary osteoarthritis, left hand; M19.041 Primary osteoarthritis, right hand; D64.9 Anemia, unspecified; M06.9 Rheumatoid arthritis, unspecified; R55 Syncope and collapse; R07.2 Precordial pain; M79.602 Pain in left arm; R68.84 Jaw pain; M35.2 Behcet's disease; R61 Generalized hyperhidrosis; M32.9 Systemic lupus erythematosus, unspecified; F14.10 Cocaine abuse, uncomplicated; F12.10 Cannabis abuse, uncomplicated; R09.89 Other specified symptoms and signs involving the circulatory and respiratory systems; R00.1 Bradycardia, unspecified; E87.8 Other disorders of electrolyte and fluid balance, not elsewhere classified; R79.89 Other specified abnormal findings of blood chemistry; F17.200 Nicotine dependence, unspecified, uncomplicated; Z79.82 Long term (current) use of aspirin; Z79.2 Long term (current) use of antibiotics; Z79.899 Other long term (current) drug therapy; Z88.4 Allergy status to anesthetic agent; Z91.018 Allergy to other foods
CPT/HCPCS: 36415; 71046; 71275; 80048; 80053; 80061; 83690; 83735; 83880; 84484; 85025; 85027; 85379; 85610; 85730; 93005; 93306; 96372; 96374; 96375; 99285

== ENCOUNTER 2024-03-22 20:57 | Emergency (ER) | payer OTHER ==
[2024-03-22 21:07] VITALS: RESP 16; TEMP 97.7
--- NOTE | 2024-03-22 21:14 | ED ---
General Adult HPI - General Chief complaint: Chest Pain Stated complaint: Chest pain Time Seen by Provider: 03/22/24 21:04 Source: patient, EMS Mode of arrival: EMS - History of Present Illness Initial comments: This patient is a 48-year-old woman arriving to have evaluation of chest pain. The patient states that it had come on around lunchtime. She states she was not active at the time. She indicates the pain radiates to the jaw and to the left arm. She describes as a heavy feeling. She has not noted worsening or relieving factors. No associated symptoms. Onset/Timin -: hour(s) Location: chest Radiation: neck, extremity Quality: other (Heavy) Consistency: constant Improves with: none Worsens with: none Associated Symptoms: denies other symptoms Treatments Prior to Arrival: none - Related Data Home Medications Medication Instructions Recorded Confirmed Acetaminophen Tab [Tylenol] 650 mg PO Q4H PRN 11/10/23 11/10/23 Amoxicillin 500 mg PO BID 11/10/23 11/10/23 Atorvastatin [Lipitor] 10 mg PO DAILY 11/10/23 11/10/23 Chlorpheniramine Maleate 4 mg PO Q4H PRN 11/10/23 11/10/23 [Chlor-Trimeton] Docusate [Colace] 100 mg PO BID PRN 11/10/23 11/10/23 Hydrocortisone Cream 1 applic TOPICAL BID PRN 11/10/23 11/10/23 [Hydrocortisone 1% Cream] Ibuprofen [Motrin Ib] 200 mg PO Q6H PRN 11/10/23 11/10/23 Melatonin 10 mg PO HS 11/10/23 11/10/23 lisinopriL [Zestril] 10 mg PO DAILY 11/10/23 11/10/23 traZODone HCL [Desyrel] 50 - 150 mg PO HS PRN 11/10/23 11/10/23 Allergies Allergy/AdvReac Type Severity Reaction Status Date / Time Fish Containing Products Allergy Anaphylaxis Verified 03/22/24 21:07 [Fish] lidocaine Allergy Anaphylaxis Verified 03/22/24 21:07 Review of Systems ROS Statement: Those systems with pertinent positive or pertinent negative responses have been documented in the HPI. ROS Other: All systems not noted in ROS Statement are negative. Constitutional: Denies: fever, chills Respiratory: Denies: cough, dyspnea Cardiovascular: Reports: chest pain. Denies: palpitations, orthopnea, edema, syncope Gastrointestinal: Denies: abdominal pain, nausea, vomiting, diarrhea Genitourinary: Denies: dysuria, hematuria Musculoskeletal: Denies: back pain Skin: Denies: rash Neurological: Denies: headache, weakness Past Medical History Past Medical History: Chest Pain / Angina, Heart Failure, Rheumatoid Arthritis (RA) Additional Past Medical History / Comment(s): Bechets Diease, Lupus History of Any Multi-Drug Resistant Organisms: None Reported Past Surgical History: Section, Hernia Repair Past Anesthesia/Blood Transfusion Reactions: No Reported Reaction Past Psychological History: No Psychological Hx Reported Smoking Status: Never smoker Past Alcohol Use History: None Reported Past Drug Use History: Cocaine, Marijuana General Exam General appearance: alert, in no apparent distress Head exam: Present: atraumatic, normocephalic Eye exam: Present: normal appearance. Absent: scleral icterus, conjunctival injection Neck exam: Present: normal inspection Respiratory exam: Present: normal lung sounds bilaterally. Absent: respiratory distress, wheezes, rales, rhonchi, stridor, accessory muscle use Cardiovascular Exam: Present: normal rhythm, bradycardia, normal heart sounds. Absent: tachycardia, irregular rhythm, systolic murmur, diastolic murmur, rubs, gallop GI/Abdominal exam: Present: soft. Absent: distended, tenderness, guarding, rebound, rigid, mass Extremities exam: Present: normal capillary refill, other (Boutonniere deformities bilateral hands). Absent: pedal edema, calf tenderness Back exam: Present: normal inspection. Absent: CVA tenderness (R), CVA tenderness (L) Neurological exam: Present: alert Skin exam: Present: warm, dry, intact, normal color. Absent: rash Course Vital Signs 03/22/24 03/22/24 03/23/24 21:03 23:14 02:00 Temperature 97.7 F Pulse Rate 51 L 60 49 L Respiratory 16 16 16 Rate Blood Pressure 114/75 99/61 104/65 O2 Sat by Pulse 100 97 100 Oximetry 03/23/24 03/23/24 03:42 04:22 Temperature Pulse Rate 51 L 57 L Respiratory 16 16 Rate Blood Pressure 107/64 108/67 O2 Sat by Pulse 98 98 Oximetry EKG Findings - EKG Results: EKG: interpreted by ERMD, sinus rhythm, normal axis, normal QRS, normal ST/T, no acute changes EKG shows: bradycardia (Rate 52 bpm) Medical Decision Making - Medical Decision Making The patient had chest x-ray that I interpreted as negative for congestive heart failure, pneumothorax. Was pt. sent in by a medical professional or institution (, L[facility]NETTE, HEALTH PROGRAM MANAGER, urgent care, hospital, or care home...) When possible be specific @ -[No] Did you speak to anyone other than the patient for history (EMS, parent, family, police, friend...)? What history was obtained from this source @ -[No] Did you review nursing and triage notes (agree or disagree)? Why? @ -[I reviewed and agree with nursing and triage notes] Were old charts reviewed (outside hosp., previous admission, EMS record, old EKG, old radiological studies, urgent care reports/EKG's, care home records)? Report findings @ -[No old charts were reviewed] Differential Diagnosis (chest pain, altered mental status, abdominal pain women, abdominal pain men, vaginal bleeding, weakness, fever, dyspnea, syncope, headache, dizziness, GI bleed, back pain, seizure, CVA, palpatations, mental health, musculoskeletal)? @ -[Differential Chest Pain: Stable Angina, Unstable Angina, STEMI, NSTEMI Aortic Dissection, Pneumothorax, Musculoskeletal, Esophageal Spasm GERD, Cholecystitis, Pancreatitis, Zoster, t his is not meant to be an all-inclusive list. EKG interpreted by me (3pts min.). @ -[I interpreted as above] X-rays interpreted by me (1pt min.). @ -[I interpreted as above CT interpreted by me (1pt min.). @ -[None done] U/S interpreted by me (1pt. min.). @ -[None done] What testing was considered but not performed or refused? (CT, X-rays, U/S, labs)? Why? @ -[None] What meds were considered but not given or refused? Why? @ -[None] Did you discuss the management of the patient with other professionals (professionals i.e. LYNETTE Danielle, HEALTH PROGRAM MANAGER, lab, RT, psych nurse, social group worker, renovator machine operator, teacher, helicopter officer, manager rn case)? Give summary @ -[No] Was smoking cessation discussed for >3mins.? @ -[No] Was critical care preformed (if so, how long)? @ -[No] Were there social determinants of health that impacted care today? How? (Homelessness, low income, unemployed, alcoholism, drug addiction, transportation, low edu. Level, literacy, decrease access to med. care, snf, rehab)? @ -[No] Was there de-escalation of care discussed even if they declined (Discuss DNR or withdrawal of care, Hospice)? DNR status @ -[No] What co-morbidities impacted this encounter? (DM, HTN, Smoking, COPD, CAD, Cancer, CVA, ARF, Chemo, Hep., AIDS, mental health diagnosis, sleep apnea, morbid obesity)? @ -[Hypertension Was patient admitted / discharged? Hospital course, mention meds given and route, prescriptions, significant lab abnormalities, going to OR and other pertinent info. @ -[This patient is a 48-year-old woman presenting to have evaluation of chest pain. The patient's physical exam and workup are benign. She has 2 negative troponins. The the patient also feeling better. Patient therefore stable to have further cardiology evaluation as outpatient. Discussed appropriate follow- up as well as return parameters. Undiagnosed new problem with uncertain prognosis? @ -[No] Drug Therapy requiring intensive monitoring for toxicity (Heparin, Nitro, Insulin, Cardizem)? @ -[No] Were any procedures done? @ -[No] Diagnosis/symptom? @ -[Acute chest pain Acute, or Chronic, or Acute on Chronic? @ -[Acute Uncomplicated (without systemic symptoms) or Complicated (systemic symptoms)? @ -[Uncomplicated Side effects of treatment? @ -[No] Exacerbation, Progression, or Severe Exacerbation? @ -[No] Poses a threat to life or bodily function? How? (Chest pain, [place], NH, pneumonia, PE, COPD, DKA, ARF, appy, cholecystitis, CVA, Diverticulitis, Homicidal, Suicidal, threat to staff... and all critical care pts) @ -[There is low risk at this time but requires further cardiology evaluation All treatments are based on ideal body weight as in ED triage - Lab Data Result diagrams: 03/22/24 21:34 03/22/24 21:34 Lab Results 03/22/24 03/22/24 03/22/24 Range/Units 21:34 21:34 21:34 WBC 5.6 (3.8-10.6) k/uL RBC 4.46 (3.80-5.40) m/uL Hgb 11.7 (11.4-16.0) gm/dL Hct 37.6 (34.0-46.0) % MCV 84.2 (80.0-100.0) fL MCH 26.2 (25.0-35.0) pg MCHC 31.1 (31.0-37.0) g/dL RDW 15.6 H (11.5-15.5) % Plt Count 273 (150-450) k/uL MPV 6.9 Neutrophils % 34 % Lymphocytes % 56 % Monocytes % 3 % Eosinophils % 4 % Basophils % 1 % Neutrophils # 1.9 (1.3-7.7) k/uL Lymphocytes # 3.1 (1.0-4.8) k/uL Monocytes # 0.2 (0-1.0) k/uL Eosinophils # 0.2 (0-0.7) k/uL Basophils # 0.0 (0-0.2) k/uL Hypochromasia Slight PT 10.6 (10.0-12.5) sec INR 0.9 (<1.2) APTT 22.4 (22.0-30.0) sec Sodium 139 (137-145) mmol/L Potassium 3.8 (3.5-5.1) mmol/L Chloride 108 H (98-107) mmol/L Carbon Dioxide 23 (22-30) mmol/L Anion Gap 8 mmol/L BUN 13 (7-17) mg/dL Creatinine 0.57 (0.52-1.04) mg/dL Est GFR (CKD-EPI)AfAm >90 (>60 ml/min/1.73 sqM) Est GFR (CKD-EPI)NonAf >90 (>60 ml/min/1.73 sqM) Glucose 98 (74-99) mg/dL Calcium 9.6 (8.4-10.2) mg/dL Magnesium 1.8 (1.6-2.3) mg/dL Total Bilirubin <0.1 L (0.2-1.3) mg/dL AST 14 (14-36) U/L ALT 10 (4-34) U/L Alkaline Phosphatase 74 (38-126) U/L Troponin I (0.000-0.034) ng/mL Total Protein 7.2 (6.3-8.2) g/dL Albumin 3.7 (3.5-5.0) g/dL 03/22/24 03/23/24 Range/Units 21:34 01:45 WBC (3.8-10.6) k/uL RBC (3.80-5.40) m/uL Hgb (11.4-16.0) gm/dL Hct (34.0-46.0) % MCV (80.0-100.0) fL MCH (25.0-35.0) pg MCHC (31.0-37.0) g/dL RDW (11.5-15.5) % Plt Count (150-450) k/uL MPV Neutrophils % % Lymphocytes % % Monocytes % % Eosinophils % % Basophils % % Neutrophils # (1.3-7.7) k/uL Lymphocytes # (1.0-4.8) k/uL Monocytes # (0-1.0) k/uL Eosinophils # (0-0.7) k/uL Basophils # (0-0.2) k/uL Hypochromasia PT (10.0-12.5) sec INR (<1.2) APTT (22.0-30.0) sec Sodium (137-145) mmol/L Potassium (3.5-5.1) mmol/L Chloride (98-107) mmol/L Carbon Dioxide (22-30) mmol/L Anion Gap mmol/L BUN (7-17) mg/dL Creatinine (0.52-1.04) mg/dL Est GFR (CKD-EPI)AfAm (>60 ml/min/1.73 sqM) Est GFR (CKD-EPI)NonAf (>60 ml/min/1.73 sqM) Glucose (74-99) mg/dL Calcium (8.4-10.2) mg/dL Magnesium (1.6-2.3) mg/dL Total Bilirubin (0.2-1.3) mg/dL AST (14-36) U/L ALT (4-34) U/L Alkaline Phosphatase (38-126) U/L Troponin I <0.012 <0.012 (0.000-0.034) ng/mL Total Protein (6.3-8.2) g/dL Albumin (3.5-5.0) g/dL Disposition Clinical Impression: Chest pain Disposition: HOME SELF-CARE Condition: Good Instructions (If sedation given, give patient instructions): Chest Pain (ED) Is patient prescribed a controlled substance at d/c from ED?: No Referrals: None,Stated [Primary Care Provider] - 1-2 days
[2024-03-22] MEDS: ASPIRIN 81 MG PO STA (21:35)
[2024-03-22 21:49] LABS: Basophils % (A) 1 %; Eosinophils # (A) 0.2 k/uL (0-0.7); Eosinophils % (A) 4 %; HCT 37.6 % (34.0-46.0); HGB 11.7 gm/dL (11.4-16.0); Hypochromasia Slight; Lymphocytes # (A) 3.1 k/uL (1.0-4.8); Lymphocytes % (A) 56 %; MCH 26.2 pg (25.0-35.0); MCHC 31.1 g/dL (31.0-37.0); MCV 84.2 fL (80.0-100.0); Mean Platelet Volume 6.9; Monocytes # (A) 0.2 k/uL (0-1.0); Monocytes % (A) 3 %; Neutrophils # (A) 1.9 k/uL (1.3-7.7); Neutrophils % (A) 34 %; Platelet Count 273 k/uL (150-450); RBC 4.46 m/uL (3.80-5.40); RDW 15.6 % (11.5-15.5); WBC 5.6 k/uL (3.8-10.6)
[2024-03-22 21:58] LABS: INR 0.9 (<1.2)
[2024-03-22 21:59] LABS: Partial Thromboplastin Time 22.4 sec (22.0-30.0); Prothrombin Time 10.6 sec (10.0-12.5)
--- NOTE | 2024-03-22 22:05 | XR ---
EXAMINATION TYPE: XR chest 2V DATE OF EXAM: 03/22/2024 9:44 PM COMPARISON: 11/10/2023 CLINICAL INDICATION: Female, 48 years old with history of Chest Pain; TECHNIQUE: XR chest 2V Frontal and lateral views of the chest. FINDINGS: Lungs/Pleura: There is no evidence of pleural effusion, focal consolidation, or pneumothorax. Pulmonary vascularity: Unremarkable. Heart/mediastinum: Cardiomediastinal silhouette is unremarkable. Musculoskeletal: No acute osseous pathology. IMPRESSION: No acute cardiopulmonary disease/process. [facility], , 03/22/2024 10:02 PM
[2024-03-22 22:06] LABS: ALT 10 U/L (4-34); AST 14 U/L (14-36); African American GFR (CKD) >90 (>60 ml/min/1.73 sqM); Albumin 3.7 g/dL (3.5-5.0); Alkaline Phosphatase 74 U/L (38-126); Anion Gap 8 mmol/L; Blood Urea Nitrogen 13 mg/dL (7-17); Calcium 9.6 mg/dL (8.4-10.2); Carbon Dioxide 23 mmol/L (22-30); Chloride 108 mmol/L (98-107); Glucose 98 mg/dL (74-99); Magnesium 1.8 mg/dL (1.6-2.3); Non-African American GFR(CKD) >90 (>60 ml/min/1.73 sqM); Potassium 3.8 mmol/L (3.5-5.1); Sodium 139 mmol/L (137-145); Total Bilirubin <0.1 mg/dL (0.2-1.3); Total Protein 7.2 g/dL (6.3-8.2)
[2024-03-23 04:22] VITALS: BP 108/67; PULSE 57
== END 2024-03-23 04:47 | disposition home or self-care (01) ==
LOC: EC 20:57
DX: R07.9 Chest pain, unspecified (principal); I11.0 Hypertensive heart disease with heart failure; I50.9 Heart failure, unspecified; R00.1 Bradycardia, unspecified; Z91.013 Allergy to seafood; Z88.8 Allergy status to other drugs, medicaments and biological substances
CPT/HCPCS: 36415; 71046; 80053; 83735; 84484; 85025; 85610; 85730; 93005; 99285